=== PATIENT | female | born 1945 | race Caucasian/White ===

== ENCOUNTER 2019-06-21 13:06 | Outpatient (CLI) | payer MEDICARE, OTHER, SELFPAY ==
--- NOTE | 2019-06-21 | XR_ITS ---
WS: [id number] CHEST 2 VIEWS HISTORY: PERSISTENT COUGH COMPARISON: None available. Lungs: Clear with no abnormality. No pleural effusion or pneumothorax. Cardiac size: Normal. Mediastinum/Aorta: Normal mediastinum. Bones: Normal. XR/XR chest 2V* [id number] IMPRESSION: Normal chest.
== END 2019-06-21 13:07 | disposition home or self-care (01) ==
LOC: RADOUTREAD 06-22 07:17
PROVIDERS: Family Provider Family Medicine; Visit Provider Nurse Practitioner Family
DX: Z01.89 Encounter for other specified special examinations (principal)

== ENCOUNTER 2019-09-14 13:22 | Outpatient (CLI) | payer MEDICARE, OTHER, SELFPAY ==
--- NOTE | 2019-09-14 13:30 | XRR_ITS ---
PROCEDURE INFORMATION: Exam: XR Cervical Spine, 4 or 5 Views Exam date and time: 09/14/2019 1:31 PM Age: 74 years old Clinical indication: Cervicalgia; Patient HX: Chronic neck pain with hand pain and numbness TECHNIQUE: Imaging protocol: XR of the cervical spine, 4 or 5 views. COMPARISON: No relevant prior studies available. FINDINGS: Vertebrae: Severe C5-C6 and moderate to severe C6-C7 degenerative disc disease and spondylosis. Mild cervical thoracic levoscoliosis. No instability with flexion and extension. Soft tissues: Normal. XR/XR cervical spine 4-5V [id number] IMPRESSION: 1. Severe C5-C6 and moderate to severe C6-C7 degenerative disc disease and spondylosis. 2. No instability with flexion and extension.
== END 2019-09-14 13:23 | disposition home or self-care (01) ==
LOC: RADWPI 13:27
PROVIDERS: Family Provider Family Medicine; Visit Provider Family Medicine
DX: M50.323 Other cervical disc degeneration at C6-C7 level (principal); M47.812 Spondylosis without myelopathy or radiculopathy, cervical region
CPT/HCPCS: 72050

== ENCOUNTER 2019-10-16 08:45 | Outpatient (CLI) | payer MEDICARE, OTHER, SELFPAY ==
--- NOTE | 2019-10-16 08:50 | MM_ITS ---
WS: [id number] BILATERAL SCREENING DIGITAL MAMMOGRAM WITH CAD HISTORY: SCREENING COMPARISON: 07/04/2018 and 07/16/2013 Bilateral CC and MLO views submitted. Computer aided detection analyzed. Breast composition: The breasts are heterogeneously dense, which may obscure small masses. No suspici ous masses, microcalcifications or architectural distortion. Scattered asymmetries and calcifications are stable. MM/[place] [id number] IMPRESSION: BI-RADS: 2-Benign FOLLOW UP: 1 Year Follow-up
== END 2019-10-16 08:46 | disposition home or self-care (01) ==
LOC: RADSHAW 08:48
PROVIDERS: PCP Family Medicine; Visit Provider Family Medicine
DX: Z12.31 Encounter for screening mammogram for malignant neoplasm of breast (principal)
CPT/HCPCS: 77067

== ENCOUNTER 2019-10-24 15:15 | Outpatient (CLI) | payer MEDICARE, OTHER, SELFPAY ==
--- NOTE | 2019-10-24 15:30 | CT_ITS ---
WS: [id number] CT CERVICAL SPINE TECHNIQUE: Noncontrast CT of the cervical spine with coronal and sagittal reformatted images. CLINICAL INFORMATION: Neck pain COMPARISON: None. DLP: 1126.[address] scans at [facility] use at least one of these dose optimization techniques: automat ed exposure control; mA and/or kV adjustment per patient size (includes targeted exams where dose is matched to clinical indication); or iterative reconstruction. FINDINGS: Straightening of the normal cervical lordosis. Mild spondylitic changes. Disc osteophyte complexes wo rse at C5-C7. C2-C3: Normal. C3-C4: Moderate to advanced left facet arthropathy. Moderate left foraminal narrowing. Right foramen and spinal canal are patent. C4-C5: Slight anterolisthesis C4 on C5. Severe right bony foraminal narrowing. Advanced facet arthrop athy. Left foramen is patent. Tiny central protrusion. Spinal canal is patent. C5-C6: Disc osteophyte complex with endplate ridging. Moderate central canal stenosis. Severe bilater al bony foraminal narrowing. Moderate facet arthropathy and uncovertebral joint hypertrophy. C6-C7: Disc osteophytic ridging. Mild central canal stenosis. Mild right greater than left bony khushbu inal narrowing. Moderate facet arthropathy. C7-T1: No significant disc bulging. Spinal canal and foramen are patent. Visualized posterior nasopharynx: Normal. Prevertebral soft tissues: Normal. CT/CT cervical spin wo con* [id number] IMPRESSION: 1. Straightening of the normal cervical lordosis with mild spondylitic changes worse at C5-C7. 2. Disc osteophyte complex worse at C5-C6 with moderate central canal stenosis and severe bilateral bony foraminal narrowing. 3. Mild central canal stenosis C6-C7 with moderate right bony foraminal narrow ing. 4. Advanced asymmetric facet arthropathy left C3-C4 with moderate to severe le ft bony foraminal narrowing. 5. Moderate to severe right C4-5 bony foraminal narrowing with moderate to adv anced right facet arthropathy.
== END 2019-10-24 15:16 | disposition home or self-care (01) ==
LOC: RADWPI 15:18
PROVIDERS: Family Provider Family Medicine; PCP Family Medicine; Visit Provider Licensed Practical Nurse
DX: M54.2 Cervicalgia (principal); M25.78 Osteophyte, vertebrae; M48.02 Spinal stenosis, cervical region; M47.812 Spondylosis without myelopathy or radiculopathy, cervical region
CPT/HCPCS: 72125

== ENCOUNTER → 2019-11-20 09:29 | Outpatient (BNVA) | payer MEDICARE, OTHER, SELFPAY | PROVIDERS: Family Provider Family Medicine; PCP Family Medicine; Referring Provider Specialist; Visit Provider Anesthesiology Pain Medicine | DX: M43.12 Spondylolisthesis, cervical region (principal); M54.12 Radiculopathy, cervical region | CPT/HCPCS: 99204 ==

== ENCOUNTER → 2019-11-27 14:49 | Outpatient (BNVA) | payer MEDICARE, OTHER, SELFPAY | PROVIDERS: Family Provider Family Medicine; PCP Family Medicine; Visit Provider Anesthesiology Pain Medicine | DX: M47.812 Spondylosis without myelopathy or radiculopathy, cervical region (principal) | CPT/HCPCS: 64490; 64491; 64492; J3490 ==

== ENCOUNTER → 2019-12-04 13:45 | Outpatient (BNVA) | payer MEDICARE, OTHER, SELFPAY | PROVIDERS: Family Provider Family Medicine; PCP Family Medicine; Visit Provider Anesthesiology Pain Medicine | DX: M47.812 Spondylosis without myelopathy or radiculopathy, cervical region (principal) | CPT/HCPCS: 64490; 64491; 64492; J3490 ==

== ENCOUNTER → 2019-12-19 09:19 | Outpatient (BNVA) | payer MEDICARE, OTHER, SELFPAY | PROVIDERS: Family Provider Family Medicine; PCP Family Medicine; Visit Provider Anesthesiology Pain Medicine | DX: M54.12 Radiculopathy, cervical region (principal); M43.12 Spondylolisthesis, cervical region | CPT/HCPCS: 99213 ==

== ENCOUNTER 2020-03-26 15:13 | Outpatient (CLI) | payer MEDICARE, OTHER, SELFPAY ==
--- NOTE | 2020-03-26 | XR_ITS ---
WS: [id number] SCREENING DEXA SCAN [employer] CLINICAL INFORMATION: ASYMPTOMATIC MENOPAUSAL STATE COMPARISON: None. FINDINGS: The L1-L4 bone mineral density measures 0.969 g/cm2. This corresponds to a T score score of -1.8 and Z score of 0.2. Left femoral neck bone mineral density measures 0.857 g/cm2. This corresponds to a T score of -1.2 an d Z score of 0.7. Right femoral neck bone mineral density measures 0.898 g/cm2. This corresponds to a T score -0.9of an d Z score of 1.1. Mean femoral neck bone mineral density measures 0.877 g/cm2. This corresponds to a T score of -1.0 an d Z score of 0.9. XR/XR DEXA axial skeleton* [id number] IMPRESSION: Osteopenia at the lower end of the range. Patient's FRAX calculated 10 year probability for major osteoporotic fracture i s 11.7 % and osteoporotic hip fracture is 2.9%.
== END 2020-03-26 15:14 | disposition home or self-care (01) ==
LOC: RADWPI 15:19
PROVIDERS: PCP Family Medicine; Visit Provider Family Medicine
DX: Z78.0 Asymptomatic menopausal state (principal); M85.88 Other specified disorders of bone density and structure, other site
CPT/HCPCS: 77080

== ENCOUNTER → 2020-05-20 13:34 | Outpatient (BNVA) | payer MEDICARE, OTHER, SELFPAY | PROVIDERS: PCP Family Medicine; Visit Provider Specialist | DX: M79.641 Pain in right hand (principal); M79.642 Pain in left hand; G56.03 Carpal tunnel syndrome, bilateral upper limbs; G62.9 Polyneuropathy, unspecified | CPT/HCPCS: 95910 ==

== ENCOUNTER 2020-10-23 14:12 | Outpatient (CLI) | payer MEDICARE, OTHER, SELFPAY ==
--- NOTE | 2020-10-23 14:20 | MM_ITS ---
WS: [id number] BILATERAL SCREENING DIGITAL MAMMOGRAM WITH CAD HISTORY: SCREENING COMPARISON: 10/16/2019 and 07/04/2018 Bilateral CC and MLO views submitted. Computer aided detection analyzed. Breast composition: The breasts are heterogeneously dense, which may obscure small masses. No suspici ous masses, microcalcifications or architectural distortion. Benign calcifications in each breast. MM/[place] [id number] IMPRESSION: BI-RADS: 2-Benign FOLLOW UP: 1 Year Follow-up
== END 2020-10-23 14:13 | disposition home or self-care (01) ==
PROVIDERS: PCP Family Medicine; Visit Provider Family Medicine
DX: Z12.31 Encounter for screening mammogram for malignant neoplasm of breast (principal)
CPT/HCPCS: 77067

== ENCOUNTER 2020-11-11 04:58 | Outpatient (CLI) | payer MEDICARE, OTHER, SELFPAY ==
[2020-11-11 05:38] VITALS: BP 142/80; PULSE 81; RESP 20; TEMP 36.4; O2SAT 99; BMI 21.9
--- NOTE | 2020-11-11 07:01 | W.ED.GENADLT ---
HPI - General Adult History of Present Illness: HPI narrative: This patient presents to the emergency department for outpatient monoclonal antibody infusion due to COVID-19. Discussed at length with patient about signs and symptoms and any allergic reaction responses. Patient had no further questions and elected to proceed with monoclonal antibody infusion. Nursing staff will monitor. Patient has had no shortness of breath no fever. Pulse ox greater than 92% on room air MD complaint: Monoclonal antibody infusion for COVID-19 Onset (ago): day(s) Associated symptoms: Reports cough; Deny chest pain, dyspnea, headache(s), nausea, rash, palpitations or vomiting Review of Systems General: Reports: 10 or more systems reviewed and unremarkable except in HPI and below Const: Denies: fever(s), chills, body aches or fatigue Eyes: Denies: change in vision or blurry vision ENMT: Denies: throat pain, hoarseness or mouth pain Card: Denies: chest pain, palpitations, irregular heart rhythm, edema, swelling of feet/ankles or lightheadedness Resp: Denies: dyspnea, productive cough, non-productive cough, wheezing or pain on inspiration GI: Denies: abdominal pain, nausea or vomiting : Denies: flank pain, difficulty voiding, dysuria, urinary frequency, urinary urgency or urinary hesitancy Musc: Denies: neck pain, back pain, extremity pain, extremity swelling, joint pain, joint swelling, joint redness, joint warmth or limited range of motion Skin/Breast: Denies: rash, pruritus, erythema or skin tenderness Neuro: Denies: headache(s), numbness in extremities or weakness in extremities Psych: Denies: anxiety or depression PFSH ED PFSH: Medical History Cervical disc disorder with myelopathy of mid-cervical region Peripheral neuropathy Restless leg syndrome Spondylolisthesis of cervical region Stenosis of cervical spine with myelopathy Surgical History History of cataract extraction History of section History of hysterectomy History of tonsillectomy Family History Mother Depression Cancer Grandmother Diabetes Cancer Family/Other Diabetes Denies family history of Anesthesia complication Bleeding disorder Social History Smoking and tobacco status: never smoked Alcohol intake: never Household members: spouse Marital status: Current occupational status: retired History of recent travel: No Katarina/[employer]eterian: [employer] Physical Exam Const: COMMON NORMALS: no acute distress, average body habitus, patient oriented x3, no limitations, healthy appearing, alert and well nourished HENMT: COMMON NORMALS: normocephalic, atraumatic, hearing grossly normal bilaterally, external ears normal, EAC's normal, TM's normal bilaterally, Normal external nose present, Normal nasal mucous membranes and turbinates present, moist oral mucous membranes, oropharynx normal, dentition normal and gingiva normal HEAD & SCALP: normocephalic and atraumatic NOSE: Normal external nose present and Normal nasal mucous membranes and turbinates present EXTERNAL EAR: Yes external ears normal EXTERNAL AUDITORY CANAL: EAC's normal TYMPANIC MEMBRANE: TM's normal bilaterally Neck/C-Spine: COMMON NORMALS: full ROM, no lymphadenopathy, supple, no meningeal signs, no JVD, Thyroid normal and No carotid bruits THYROID: Thyroid normal Chest: COMMONS NORMALS: normal inspection of the chest, normal palpation of entire chest wall, normal inspection of the breasts and normal palpation of the breasts Breast/axilla inspection: Yes normal inspection of the breasts BREAST/AXILLA PALPATION: Yes normal palpation of the breasts Resp: COMMON NORMALS: normal respiratory effort, No retractions, No use of accessory muscles, clear to auscultation bilaterally and percussion normal AUSCULTATION: clear to auscultation bilaterally PERCUSSION: percussion normal Cardio: COMMON NORMALS: no JVD, regular rate, regular rhythm, S1 normal heart sound present, S2 normal heart sound present, No gallops present (Cardio), No clicks present (Cardio), No murmurs present (Cardio), No rub (Cardio) and Peripheral pulses 2+ throughout RATE: regular rate RHYTHM: regular rhythm HEART SOUNDS: S1 normal heart sound present and S2 normal heart sound present PERIPHERAL PULSES: Peripheral pulses 2+ throughout GI: COMMON NORMALS: Normal to inspection, nondistended, normoactive bowel sounds present, Soft to palpation, non-tender, No hepatosplenomegaly present, no masses and no bruits PALPATION: Yes Soft to palpation and Yes No hepatosplenomegaly present Back/Pelvis: COMMON NORMALS: thoracic and lumbar spine normal to inspection, no thoracic nor lumbar tenderness, thoraco-lumbar ROM normal and straight leg raise negative bilaterally Extremity: COMMON NORMALS: normal to inspection, full ROM, capillary refill normal, no joint enlargement, no clubbing, cyanosis or edema, no calf tenderness and no pedal edema Neuro: COMMON NORMALS: patient oriented x3 SENSORIUM/ORIENTATION: Yes alert MENINGEAL SIGNS: Yes no meningeal signs Course Vital Signs: Vital signs: Vital Signs Temperature 97.6 F 11/11/20 05:38 Pulse Rate 81 11/11/20 05:38 Respiratory Rate 20 H 11/11/20 05:38 Blood Pressure 142/80 11/11/20 05:38 Pulse Oximetry 99 11/11/20 05:38 Discharge Plan Discharge Prescriptions: No Action Excedrin Extra Strength 250-250-65 mg tablet 1 tab PO Q6H PRNRF: 0 biotin 5,000 mcg tablet,disintegrating 10,000 mcg PO DAILY RF: 0 Calcium 600 + D(3) 600 mg calcium- 200 unit capsule PO RF: 0 glucosamine-chondroitin 750-600 mg tablet,chewable 1 tab PO BID RF: 0 levocetirizine 5 mg tablet 5 mg PO DAILY RF: 0 omeprazole 20 mg capsule,delayed release(DR/EC) 20 mg PO DAILY RF: 0 Toviaz 8 mg tablet extended release 24 hr 8 mg PO DAILY RF: 0 ibuprofen-diphenhydramine cit [Ibuprofen PM] 200-38 mg tablet PO RF: 0 cyanocobalamin (vitamin B-12) 1,000 mcg capsule 1,000 mcg PO DAILY RF: 0 bupivacaine (PF) 0.25 % (2.5 mg/mL) solution 1 ml INTRA-RONA ONCE Qty: 1 RF: 0 lidocaine (PF) 10 mg/mL (1 %) solution 1 ml INTRA-RONA ONCE Qty: 1 RF: 0 Coding Level of Care Code ED Chief Nursing Executive for Vinny Leon
[2020-11-11 07:30] VITALS: BP 143/77; PULSE 73; TEMP 36.7; O2SAT 98
[2020-11-11 08:34] VITALS: BP 133/79; PULSE 73; TEMP 36.4
--- NOTE | 2020-11-20 13:22 | DCPLANNER ---
parks and recreation manager had message that patient received the monoclonal antibody infusion. parks and recreation manager called to check on patient, spoke with her . He stated that patient was doing good. stated that before the infusion that patient had a cough, had a fever, headache, and body aches. That after the infusion, patient has not had a fever, still has a slight cough, but is feeling much better.
== END 2020-11-11 04:59 | disposition home or self-care (01) ==
LOC: ER 04:59
PROVIDERS: PCP Family Medicine; Visit Provider Family Medicine
DX: U07.1 COVID-19 (principal)
CPT/HCPCS: 96365

== ENCOUNTER → 2020-12-16 09:49 | Outpatient (BNVA) | payer MEDICARE, OTHER, SELFPAY | PROVIDERS: PCP Family Medicine; Visit Provider Internal Medicine Rheumatology | DX: M15.9 Polyosteoarthritis, unspecified (principal); I73.00 Raynaud's syndrome without gangrene; G56.03 Carpal tunnel syndrome, bilateral upper limbs; Z79.899 Other long term (current) drug therapy; M25.50 Pain in unspecified joint | CPT/HCPCS: 36415; 80076; 82565; 85025; 86038; 86140; 99204 ==

== ENCOUNTER 2020-12-16 14:34 | Outpatient (CLI) | payer MEDICARE, OTHER, SELFPAY ==
[2020-12-16 15:03] LABS: Basophils % 0.7 %; Eosinophils # 0.1 10^3/uL (0.0-0.8); Eosinophils % 2.1 %; Hematocrit 39.1 % (37.0-47.0); Hemoglobin 12.3 g/dL (11.5-15.3); Lymphocytes # 1.3 10^3/uL (0.8-4.8); Lymphocytes % 23.2 %; Mean Corpuscular HGB Conc 31.5 g/dL (30.0-36.0); Mean Corpuscular Hemoglobin 28.4 pg (28.0-34.0); Mean Corpuscular Volume 90.3 fl (81-99); Mean Platelet Volume 11.6 fL (7.4-10.4); Monocytes # 0.4 10^3/uL (0.2-0.9); Monocytes % 6.7 %; Neutrophils # 3.83 10^3/uL (1.8-7.7); Neutrophils % 67.1 %; Nucleated Red Blood Cells % 0 %; Platelet Count 188 10^3/cmm (130-400); Red Blood Count 4.33 10^6/uL (4.1-5.3); Red Cell Distribution Width 14.2 % (12.1-15.1); White Blood Count 5.7 10^3/uL (4.0-10.0)
[2020-12-16 15:35] LABS: Alanine Aminotransferase 18 U/L (0-33); Albumin Level 4.3 g/dL (3.5-5.2); Alkaline Phosphatase 94 IU/L (35-105); Aspartate Amino Transferase 21 U/L (0-32); C Reactive Protein 0.7 mg/L (0.0-4.9); Globulin 2.4 g/dL (1.3-4.6); Total Bilirubin 0.3 mg/dL (0.15-1.2); Total Protein 6.7 g/dL (6.6-8.7)
[2020-12-17 16:22] LABS: Anti-Nuclear Antibody Screen NEGATIVE (NEGATIVE)
== END 2020-12-16 14:35 | disposition home or self-care (01) ==
LOC: LAB 14:44
PROVIDERS: PCP Family Medicine; Visit Provider Internal Medicine Rheumatology
DX: M25.50 Pain in unspecified joint (principal); Z79.899 Other long term (current) drug therapy
CPT/HCPCS: 36415; 80076; 82565; 85025; 86038; 86140

== ENCOUNTER → 2021-03-09 13:42 | Outpatient (BNVA) | payer MEDICARE, OTHER, SELFPAY | PROVIDERS: PCP Family Medicine; Visit Provider Internal Medicine Rheumatology | DX: M15.9 Polyosteoarthritis, unspecified (principal); I73.00 Raynaud's syndrome without gangrene; G56.03 Carpal tunnel syndrome, bilateral upper limbs; G62.9 Polyneuropathy, unspecified | CPT/HCPCS: 99214 ==

== ENCOUNTER → 2021-06-29 14:58 | Outpatient (BNVA) | payer MEDICARE, OTHER, SELFPAY | PROVIDERS: PCP Family Medicine; Visit Provider Internal Medicine Rheumatology | DX: I73.00 Raynaud's syndrome without gangrene (principal); M15.9 Polyosteoarthritis, unspecified; G56.03 Carpal tunnel syndrome, bilateral upper limbs; Z79.899 Other long term (current) drug therapy; G62.9 Polyneuropathy, unspecified; M19.90 Unspecified osteoarthritis, unspecified site | CPT/HCPCS: 36415; 80076; 82565; 85025; 86140; 99214 ==

== ENCOUNTER 2021-06-29 16:15 | Outpatient (CLI) | payer MEDICARE, OTHER, SELFPAY ==
[2021-06-29 17:08] LABS: Basophils % 0.5 %; Eosinophils # 0.1 10^3/uL (0.0-0.8); Eosinophils % 2.1 %; Hemoglobin 12.2 g/dL (11.5-15.3); Lymphocytes # 1.2 10^3/uL (0.8-4.8); Lymphocytes % 19.4 %; Mean Corpuscular HGB Conc 31.3 g/dL (30.0-36.0); Mean Corpuscular Hemoglobin 28.7 pg (28.0-34.0); Mean Corpuscular Volume 91.8 fl (81-99); Mean Platelet Volume 12.1 fL (7.4-10.4); Monocytes # 0.5 10^3/uL (0.2-0.9); Neutrophils # 4.37 10^3/uL (1.8-7.7); Neutrophils % 69.8 %; Nucleated Red Blood Cells % 0 %; Platelet Count 188 10^3/cmm (130-400); Red Blood Count 4.25 10^6/uL (4.1-5.3); Red Cell Distribution Width 14.4 % (12.1-15.1); White Blood Count 6.3 10^3/uL (4.0-10.0)
[2021-06-29 17:40] LABS: Alanine Aminotransferase 14 U/L (0-33); Albumin Level 4.5 g/dL (3.5-5.2); Alkaline Phosphatase 110 IU/L (35-105); Aspartate Amino Transferase 17 U/L (0-32); Globulin 2.3 g/dL (1.3-4.6); Total Bilirubin 0.2 mg/dL (0.15-1.2); Total Protein 6.8 g/dL (6.6-8.7)
== END 2021-06-29 16:16 | disposition home or self-care (01) ==
LOC: LAB 16:25
PROVIDERS: PCP Family Medicine; Visit Provider Internal Medicine Rheumatology
DX: G62.9 Polyneuropathy, unspecified (principal); I73.00 Raynaud's syndrome without gangrene; Z79.899 Other long term (current) drug therapy; M19.90 Unspecified osteoarthritis, unspecified site
CPT/HCPCS: 36415; 80076; 82565; 85025; 86140

== ENCOUNTER 2021-12-04 10:47 | Outpatient (CLI) | payer MEDICARE, OTHER, SELFPAY ==
[2021-12-04 11:15] LABS: Basophils % 0.6 %; Eosinophils # 0.2 10^3/uL (0.0-0.8); Eosinophils % 3.6 %; Hematocrit 41.5 % (37.0-47.0); Lymphocytes # 1.4 10^3/uL (0.8-4.8); Mean Corpuscular HGB Conc 31.3 g/dL (30.0-36.0); Mean Corpuscular Hemoglobin 28.6 pg (28.0-34.0); Mean Corpuscular Volume 91.4 fl (81-99); Mean Platelet Volume 11.8 fL (7.4-10.4); Monocytes # 0.5 10^3/uL (0.2-0.9); Monocytes % 9.9 %; Neutrophils # 2.63 10^3/uL (1.8-7.7); Neutrophils % 55.7 %; Nucleated Red Blood Cells % 0 %; Platelet Count 182 10^3/cmm (130-400); Red Blood Count 4.54 10^6/uL (4.1-5.3); Red Cell Distribution Width 14.3 % (12.1-15.1); White Blood Count 4.7 10^3/uL (4.0-10.0)
[2021-12-04 11:31] LABS: Alanine Aminotransferase 18 U/L (0-33); Alkaline Phosphatase 113 U/L (35-105); Aspartate Amino Transferase 20 U/L (0-32); Globulin 1.5 g/dL (1.3-4.6); Total Bilirubin 0.3 mg/dL (0.15-1.2); Total Protein 6.5 g/dL (6.6-8.7)
== END 2021-12-04 10:48 | disposition home or self-care (01) ==
LOC: LAB 10:52
PROVIDERS: PCP Family Medicine; Visit Provider Internal Medicine Rheumatology
DX: G62.9 Polyneuropathy, unspecified (principal); I73.00 Raynaud's syndrome without gangrene; M19.90 Unspecified osteoarthritis, unspecified site; Z79.899 Other long term (current) drug therapy
CPT/HCPCS: 36415; 80076; 82565; 85025; 86140

== ENCOUNTER → 2022-01-05 13:53 | Outpatient (BNVA) | payer MEDICARE, OTHER, SELFPAY | PROVIDERS: PCP Family Medicine; Visit Provider Internal Medicine Rheumatology | DX: G56.03 Carpal tunnel syndrome, bilateral upper limbs (principal); I73.00 Raynaud's syndrome without gangrene; M15.9 Polyosteoarthritis, unspecified | CPT/HCPCS: 99214 ==

== ENCOUNTER 2022-02-10 11:40 | Outpatient (CLI) | payer MEDICARE, OTHER, SELFPAY ==
--- NOTE | 2022-02-10 11:45 | MM_ITS ---
WS: [id number] BILATERAL SCREENING DIGITAL TOMOSYNTHESIS MAMMOGRAM WITH CAD HISTORY: SCREENING COMPARISON: 10/23/2020 and 10/16/2019 Bilateral CC and MLO views with tomosynthesis and synthetic mammography submitted. Computer aided det ection analyzed. Breast composition: The breasts are heterogeneously dense, which may obscure small masses. No suspici ous masses, microcalcifications or architectural distortion. Bilateral breast calcifications. MM/[place] [id number] IMPRESSION: BI-RADS: 2-Benign FOLLOW UP: 1 Year Follow-up
== END 2022-02-10 11:41 | disposition home or self-care (01) ==
LOC: RAD 11:40
PROVIDERS: PCP Family Medicine; Visit Provider Family Medicine
DX: Z12.31 Encounter for screening mammogram for malignant neoplasm of breast (principal)
CPT/HCPCS: 77063; 77067

== ENCOUNTER → 2022-06-08 13:16 | Outpatient (BNVA) | payer MEDICARE, OTHER, SELFPAY | PROVIDERS: PCP Family Medicine; Visit Provider Internal Medicine Rheumatology | DX: G56.03 Carpal tunnel syndrome, bilateral upper limbs (principal); I73.00 Raynaud's syndrome without gangrene; Z79.899 Other long term (current) drug therapy; M15.9 Polyosteoarthritis, unspecified | CPT/HCPCS: 36415; 80076; 82565; 85025; 86140; 99214 ==

== ENCOUNTER 2022-06-29 13:42 | Outpatient (CLI) | payer MEDICARE, OTHER, SELFPAY ==
--- NOTE | 2022-06-29 13:54 | XR_ITS ---
WS: [id number] DEXA (DUAL ENERGY X-RAY ABSORPTIOMETRY) Bone mineral density was performed using a [employer] machine. HISTORY: ASYMPTOMATIC MENOPAUSAL STATE COMPARISON: 03/26/2020 Lumbar spine BMD (L1-L4): 1.003 g/cm2 T score: -1.5 Z score: 0.4 Total hip BMD: Left: 0.857 g/cm2. T score: -1.2 Z score: 0.7 Right: 0.866 g/cm2. T score: -1.1 Z score: 0.8 10 year probability of a major osteoporotic fracture is 18.7%. Compared to the prior study from 03/26/2020. Lumbar spine bone mineral density has increased by 3.5%. Bilateral hips bone mineral density has decreased by 1.8%. XR/XR DEXA axial skeleton* [id number] IMPRESSION: OSTEOPENIA based upon the WHO classification for females. Significant increase in bone mineral density within the lumbar spine since the prior study.
== END 2022-06-29 13:43 | disposition home or self-care (01) ==
LOC: RAD 13:48
PROVIDERS: PCP Family Medicine; Visit Provider Family Medicine
DX: Z78.0 Asymptomatic menopausal state (principal); M85.80 Other specified disorders of bone density and structure, unspecified site
CPT/HCPCS: 77080

== ENCOUNTER → 2022-09-23 13:17 | Outpatient (BNVA) | payer MEDICARE, OTHER, SELFPAY | PROVIDERS: PCP Family Medicine; Visit Provider Internal Medicine Rheumatology | DX: G56.03 Carpal tunnel syndrome, bilateral upper limbs (principal); I73.00 Raynaud's syndrome without gangrene; M15.9 Polyosteoarthritis, unspecified | CPT/HCPCS: 99214 ==

== ENCOUNTER → 2022-10-12 15:15 | Outpatient (BNVA) | payer MEDICARE, OTHER, SELFPAY | PROVIDERS: PCP Family Medicine; Visit Provider Dermatology | DX: L57.0 Actinic keratosis (principal); L82.1 Other seborrheic keratosis; L81.4 Other melanin hyperpigmentation; L57.8 Other skin changes due to chronic exposure to nonionizing radiation; D18.01 Hemangioma of skin and subcutaneous tissue | CPT/HCPCS: 17000; 17003; 99213 ==

== ENCOUNTER 2023-03-02 13:18 | Outpatient (CLI) | payer MEDICARE, OTHER, SELFPAY ==
--- NOTE | 2023-03-02 14:39 | MM_ITS ---
WS: [id number] BILATERAL 3D TOMOSYNTHESIS DIGITAL SCREENING MAMMOGRAPHY WITH CAD CLINICAL INFORMATION: SCREENING HISTORY: Screening mammogram. No current complaints. COMPARISON: 2021 TECHNIQUE: Bilateral CC and MLO views. FINDINGS: The breasts are composed of heterogeneous fibroglandular density tissue, which can limit the detectio n of small underlying mass lesions. No suspicious mass, asymmetry, calcifications, or architectural d istortion. No evidence of malignancy. Punctate and lucent centered calcifications. IMPRESSION: MM/[place] [id number] BI-RADS: 2-Benign FOLLOW UP: 1 Year Follow-up Recommend return to annual screening mammography.
== END 2023-03-02 13:19 | disposition home or self-care (01) ==
LOC: RAD 13:18
PROVIDERS: PCP Family Medicine; Visit Provider Family Medicine
DX: Z12.31 Encounter for screening mammogram for malignant neoplasm of breast (principal)
CPT/HCPCS: 77063; 77067

== ENCOUNTER 2023-08-28 13:53 | Emergency (ER) | payer MEDICARE, OTHER, SELFPAY ==
--- NOTE | 2023-08-28 13:58 | XRR_ITS ---
PROCEDURE INFORMATION: Exam: XR Left Knee Exam date and time: 08/28/2023 2:13 PM Age: 78 years old Clinical indication: Left; Patient HX: Lt knee pain; No known injury TECHNIQUE: Imaging protocol: Radiologic exam of the left knee. Views: 3 views. COMPARISON: CR XR knee LT 3V* [id number] 12/17/2018 7:06 AM FINDINGS: Bones/joints: No evidence of acute fracture or subluxation. No evidence of joint effusion. Distal quadriceps insertional enthesophyte. Soft tissues: No gross soft tissue abnormality. XR/XR knee LT 3V* [id number] IMPRESSION: 1. No evidence of acute fracture or subluxation. If there is clinical concern for meniscal or ligamentous pathology, consider correlation with follow-up outpatient MRI.
[2023-08-28 14:03] VITALS: BP 153/72; PULSE 90; RESP 17; TEMP 36.6; O2SAT 97; BMI 23.8
--- NOTE | 2023-08-28 14:52 | ED_ITS ---
HPI - Extremity Problem General: Chief complaint: Extremity Problem,Nontraumatic Stated complaint: left knee pain Time Seen by Provider: 08/28/23 14:17 Source: patient and family Mode of arrival: ambulatory Limitations: no limitations History of Present Illness: This patient complains of some intermittent electricity like lancinating pains to the skin area just below her right knee. She states it is on the inside of the leg. She states that 6 can be triggered by touch or sometimes spontaneously occurs. She states its only limited to that circumscribed area of her leg. She has a history of peripheral neuropathy and takes gabapentin. She denies any history of diabetes. She had also been recently switched to losartan because of her Raynaud's phenomenon. He denies any injury. No history of knee problems. She Nuys any skin rashes or other contributing factors. She denies any associated back pain hip pain. She wonders if it might be her sciatica as she has had sciatica before but again she has no other contributory symptoms. Associated symptoms: Deny chest pain, fever(s) or rash Review of Systems Const: Denies: fever(s) or chills Card: Denies: chest pain, irregular heart rhythm, edema, lightheadedness, syncope or pre-syncope GI: Denies: nausea or vomiting : Denies: difficulty voiding, dysuria or urinary frequency Musc: Reports: extremity pain; Denies: neck pain, back pain, extremity swelling, joint pain, joint swelling, joint redness or joint warmth Skin/Breast: Reports: skin pain; Denies: rash, pruritus or erythema Neuro: Denies: headache(s), numbness in extremities or weakness in extremities PFSH ED PFSH: Medical History Osteoarthritis, generalized Raynauds phenomenon Hypothyroidism Sjogrens syndrome Opioid contract exists Hypercholesteremia Seasonal allergies Joint pain Finger numbness Numbness of toes Spondylolisthesis of cervical region 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 disc disorder with myelopathy of mid-cervical region Peripheral neuropathy Restless leg syndrome Surgical History History of colonoscopy History of hysterectomy History of cataract extraction History of tonsillectomy History of section Family History Mother Depression Cancer Grandmother Diabetes Cancer Family/Other Diabetes Other Hypertension Parkinson disease Denies family history of Rheumatoid arthritis Lupus CAD (coronary artery disease) Chronic kidney disease (CKD) Anesthesia complication Bleeding disorder Lung disease Stroke Social History Smoking and tobacco/nicotine status: never used tobacco/nicotine Alcohol intake: never Substance/Drug Use: never Household members: spouse Marital status: Current occupational status: retired Do you think of yourself as: Straight/Heterosexual Katarina/Evangelical: Scientologist Physical Exam Narrative: EXAM NARRATIVE: The patient's alert cooperative in no acute distress. Const: COMMON NORMALS: no acute distress, average body habitus and patient oriented x3 GENERAL APPEARANCE: cooperative and comfortable HENMT: COMMON NORMALS: normocephalic, atraumatic and Normal nasal mucous membranes and turbinates present HEAD & SCALP: normocephalic and atraumatic NOSE: Normal nasal mucous membranes and turbinates present Eye: COMMON NORMALS: Equal, round and reactive pupils present and conjunctivae normal CONJUNCTIVA: Yes conjunctivae normal PUPIL: Yes Equal, round and reactive pupils present Neck/C-Spine: COMMON NORMALS: full ROM, supple and no JVD CERVICAL SPINE: Yes cervical ROM normal Resp: COMMON NORMALS: normal respiratory effort EFFORT & INSPECTION: Yes able to speak in complete sentences Cardio: COMMON NORMALS: no JVD and Peripheral pulses 2+ throughout PERIPHERAL PULSES: Peripheral pulses 2+ throughout : COMMON NORMALS: Yes no CVA tenderness BLADDER/KIDNEY EXAM: Yes no CVA tenderness Back/Pelvis: COMMON NORMALS: no CVA tenderness, thoracic and lumbar spine normal to inspection, no thoracic nor lumbar tenderness, thoraco-lumbar ROM normal and straight leg raise negative bilaterally SACROILIAC JOINTS: Yes SI joints normal Extremity: COMMON NORMALS: normal to inspection, full ROM, capillary refill normal, no calf tenderness and no pedal edema NARRATIVE EXTREMITY EXAM: Examination of the area of concern reveals a normal-appearing knee joint. She has no laxity varus valgus stress. She has no of ballotable patella or effu manuela. She has tenderness intermittently to touch over the left inferior knee joint region and extending down approximately 4 to 5 cm into the proximal tibia location. There is no skin rash, lymphangitis, proximal lymphadenopathy. Range of motion does not change her symptoms. Distally there is no evidence of erythema lesion etc. Neuro: COMMON NORMALS: patient oriented x3, moves all extremities, no focal motor deficits and no sensory deficits noted Psych: COMMON NORMALS: mental status grossly normal Skin: COMMON NORMALS: no rashes or lesions noted, no wounds and turgor normal GENERAL SKIN EXAM: no rashes or lesions noted and turgor normal Course Reevaluation(s): Reevaluation #1: Patient was reexamined I shared unremarkable x-ray findings. Also reviewed her history again with her. She states that she has tried topical Voltaren, Salonpas patch and other therapies without much relief although she admits that she is rather impatient with any of her therapies. She again states that she was told there might be related to her sciatica in the past although the distribution of her symptoms is very atypical and not consistent with sciatic nerve intervention area. She states she was given a steroid injection in the past which improved her. Will go ahead and give her 10 mg of Decadron IM and have her contact her physician in the morning to discuss her blood pressure medicine is somehow she thinks that there may be an interaction between her current symptoms and her change to calcium channel nelson. At this point there is no evidence of an ongoing emergency medical condition and she is suitable to be discharged they were appreciative of care. Time: 15:58 Vital Signs: Vital signs: Vital Signs Temperature 97.9 F 08/28/23 14:03 Pulse Rate 90 08/28/23 14:03 Respiratory Rate 17 08/28/23 14:03 Blood Pressure 153/72 08/28/23 14:03 Pulse Oximetry 97 08/28/23 14:03 Oxygen Delivery Me thod Room Air 08/28/23 14:03 MDM - Extremity (Nontraumatic) Medical Decision Making Patient presented to the emergency department because of an intermittent and unrelenting hyperesthesia to her left medial knee and lower leg that is been off and on for the last 24 hours despite her topical therapy. There is no injury, skin rashes, other contributing factors other than she has had a recent change in her antihypertensives from her SUELLEN inhibitor to a calcium channel nelson. She does have a history of peripheral neuropathy and takes gabapentin but has no history of diabetes or other neurologic issues. Clinical examination was reassuring she had paresthesia to light touch in the skin of the involved area at the medial left leg and knee. No skin changes skin rashes lymphangitis calf tenderness etc. Plain films were ordered and reviewed which were unremarkable. This point she does not have any evidence to suggest a ongoing emergency medical condition. Due to the patient's insistence that she has had improvement with steroids in the past she was given 10 mg of Decadron and she was encouraged to contact her regular physician in the morning. We also discussed return precautions. XR interpretation done by ED provider, pending radiology final review ED provider radiology interpretation(s): Unremarkable left knee Discharge Plan Discharge Patient Disposition: Home Clinical Impression: Hyperesthesia Condition: Stable Prescriptions: No Action biotin 5,000 mcg tablet,disintegrating 10,000 mcg PO DAILY Calcium 600 + D(3) 600 mg calcium- 200 unit capsule PO glucosamine-chondroitin 750-600 mg tablet,chewable 1 tab PO BID Rx Instructions: chew thoroughly before swallowing; do not swallow whole levocetirizine 5 mg tablet 5 mg PO DAILY omeprazole 20 mg capsule,delayed release(DR/EC) 20 mg PO DAILY Toviaz 8 mg tablet extended release 24 hr 8 mg PO DAILY ibuprofen-diphenhydramine cit [Ibuprofen PM] 200-38 mg tablet PO cyanocobalamin (vitamin B-12) 1,000 mcg capsule 1,000 mcg PO DAILY simvastatin 5 mg tablet 5 mg PO DAILY pramipexole 0.125 mg tablet 0.125 mg PO DAILY docusate sodium [Colace] 100 mg capsule 100 mg PO DAILY PRN acetaminophen [Tylenol Extra Strength] 500 mg tablet 1,000 mg PO BID cholecalciferol (vitamin D3) 25 mcg (1,000 unit) capsule 25 mcg PO DAILY amino ac-hydroly collagen-whey 15 gram-100 kcal/30 mL liquid See Rx Instructions PO DAILY Rx Instructions: 1 Tablespoon PO daily; diclofenac sodium 1 % gel 4 g topical QID Qty: 100 2RF Rx Instructions: apply to single elbow, wrist or hand; for hand includes palm/fingers/back of hand fluticasone propionate 50 mcg/actuation spray,suspension See Rx Instructions .ROUTE .COMPLEX Qty: 16 1RF Dose Instruction: USE 1 SPRAY IN EACH NOSTRIL ONCE DAILY Rx Instructions: USE 1 SPRAY IN EACH NOSTRIL ONCE DAILY gabapentin 300 mg capsule 300 mg PO .bedtime Qty: 90 1RF gabapentin 100 mg capsule See Rx Instructions PO DAILY Qty: 180 1RF Rx Instructions: 1 cap in am and 1 cap in afternoon PO daily; losartan 25 mg tablet 25 mg PO DAILY Qty: 90 1RF Discharge Orders: Discharge ED (Routine); Ordered 08/28/23 Ordered By: Nikko Hill Referrals: Abida Rowe MD [Primary Care Provider] - 1 week Discharge Diet: Usual diet Discharge Activity: Resume usual activity Patient Instructions: Opioid Safety, Pain Management Activity Restrictions/Additional Instructions: As we discussed while you are in the emergency department did not find a serious reason for your extreme sensitivity and discomfort in your left leg. The does not appear to be anything that requires emergent care however review and continue will adjustments of your medication will be important and necessary. You are welcome to return to the emergency department anytime for recurrent or worsening symptoms or other concerns. Otherwise follow-up with your doctor in 1 week. Coding Level of Care Code ED Flight Surveyor for Vinny Leon
[2023-08-28] MEDS: dexamethasone 10 mg/mL INJ IM (16:20)
[2023-08-28 16:22] VITALS: BP 148/76; PULSE 92; RESP 16; TEMP 36.6; O2SAT 98
== END 2023-08-28 16:23 | disposition home or self-care (01) ==
PROVIDERS: Emergency Provider Emergency Medicine; PCP Family Medicine
DX: R20.3 Hyperesthesia (principal)
CPT/HCPCS: 73562; 96372; 99284; J1100

== ENCOUNTER → 2023-10-13 09:18 | Outpatient (BNVA) | payer MEDICARE, OTHER, SELFPAY | PROVIDERS: PCP Family Medicine; Visit Provider Nurse Practitioner Family | DX: L57.0 Actinic keratosis (principal); D18.01 Hemangioma of skin and subcutaneous tissue; L81.4 Other melanin hyperpigmentation; L57.8 Other skin changes due to chronic exposure to nonionizing radiation | CPT/HCPCS: 17000; 99213 ==